=== PATIENT | female | born 1950 | race Caucasian/White ===

== ENCOUNTER → 2016-04-01 | Outpatient (CLI) | payer MEDICARE ==
[2016-04-01 15:03] LABS: BLOOD, URINE NEG (NEG); COMMENT (UR) CATH-CULT NOT IND; GLUCOSE,URINE 1000 mg/dL (NEG); KETONE, URINE NEG (NEG); MUCUS URINE FEW /lpf (OCC); NITRITE,URINE NEG (NEG); PH, URINE 5.5 (5.0-8.5); SQUAMOUS EPITHELIAL CELL URINE <1 /hpf (0-5); URINE COLOR YELLOW (YELLW/STRAW)
== END ==
LOC: HLAB 13:45
PROVIDERS: ATTEND Orthopaedic Surgery Orthopaedic Surgery of the Spine
DX: N39.0 Urinary tract infection, site not specified (principal)
CPT/HCPCS: 81001

== ENCOUNTER → 2016-04-02 | Day surgery (SDC) | payer MEDICARE ==
[~2016-04-02] MED LIST: ACETAMINOPHEN/HYDROcodone 325 MG/5 MG TAB ONE; BACITRACIN IM FOR SOLN 50,000 UNIT VIAL ONE; BUPIVACAINE/EPINEPHRINE 0.25% 50 ML VIAL ONE; BUPIVACAINE/EPINEPHRINE 0.25% PF 10 ML VIAL ONE; GENTAMICIN SULFATE 80 MG/2 ML VIAL ONE; KETOROLAC TROMETHAMINE 30 MG/ML (IVP) VIAL IV PUSH ONE; LACTATED RINGER'S 1000 ML INJ 1,000 ML ONE; MIDAZOLAM HCL 2 MG/2 ML VIAL ONE; MORPHINE SULFATE 4 MG/ML INJ ONE; ONDANSETRON HCL 4 MG/2 ML VIAL IV PUSH ONE; PROPOFOL 200 MG/20 ML AMP IV ONE; SODIUM CHLORIDE 0.9% 20 ML VIAL ONE; VANCOMYCIN HCL 1000 MG VIAL ONE; ceFAZolin 2 GM PREMIX 50 ML ONE; ceFAZolin INJ 1,000 MG VIAL ONE
--- NOTE | 2016-04-02 09:00 | TN ---
cc: KIMBERLY CUEVAS M.D. DATE OF SURGERY: 04/02/2016 PREOPERATIVE DIAGNOSIS 1. Osteoarthritis, left knee. 2. Chondromalacia patella. POSTOPERATIVE DIAGNOSIS 1. Osteoarthritis, left knee. 2. Chondromalacia patella. PROCEDURE 1. Left knee unicompartmental replacement arthroplasty, medial compartment. 2. Partial patellectomy. SURGEON Kimberly Cuevas MD FIELD OPERATIONS COORDINATOR Shola Cuevas MD ANESTHESIA General. ESTIMATED BLOOD LOSS 100 ccs INDICATION This is a 65-year-old female with significant medial sided left knee joint pain related to progressive osteoarthritis and varus deformity. Despite conservative care including injections, medications, altered activities, encouragement of weight loss, etc. the patient continues to be painful and symptomatic. She presents for surgical treatment. PROCEDURE The patient was brought to the operating room, anesthetized in the supine position. She was positioned in the arthroscopy charles. The left leg was scrubbed with alcohol followed by Hibiclens, followed by Chloraprep and draped sterilely. Antibiotics were given within a 1 hour time window and a time-out was done. The surgery was performed with clean air suits. After exsanguination the tourniquet was inflated to 250 mmHg. An anterior and slightly medial incision was made. A median parapatellar arthrotomy was performed. The medial facet of the patella was resected using an oscillating saw to decrease contacting forces. A sizing guide was utilized to the medial femoral condyle and the posterior facet was resected followed by slight chamfering and then freehand contour of the tibia for a number two inlay. The femur then contoured in line with the template. This was sized for a #1 femoral component. The medial osteophyte was resected. The trial components were positioned and had good balancing in flexion and extension. The patient had 10 degrees of varus deformity which we attempted to correct to within [id number] degrees of neutral. The wound was irrigated copiously. Hemostasis was controlled. A field block with 0.25% Marcaine with epinephrine was utilized. One pack of methacrylate was mixed on the back table. The components were cemented. Excess cement was removed. The knee was brought into full extension. The tourniquet was let down. Hemostasis was controlled. A drain was brought out through a separate stab incision. The arthrotomy was repaired with interrupted #2 Tycron suture, subcutaneous tissue with 2-0 Vicryl suture and skin with running intradermal 3-0 Vicryl followed by Benzoin and Steri-Strips. Sponge count, needle counts, instrument counts were all correct. The patient tolerated the procedure well and was taken to the recovery room in satisfactory condition. Kimberly MD DANIEL Fair/TLAmy /8:26 AM /8:36 AM
== END | disposition home or self-care (01) ==
LOC: ESDC 06:06
PROVIDERS: ATTEND Orthopaedic Surgery Orthopaedic Surgery of the Spine
DX: M17.12 Unilateral primary osteoarthritis, left knee (principal); M22.42 Chondromalacia patellae, left knee
CPT/HCPCS: 01400; 27446; C1776; J0690; J1580; J1885; J2250; J2270; J2405; J3010; J3370; J7120